=== PATIENT | male | born 1980 | race Caucasian/White ===

== ENCOUNTER 2023-03-25 10:01 | Emergency (ER) | payer BC, SELFPAY ==
[2023-03-25 10:21] VITALS: BP 131/79; PULSE 81; RESP 18; TEMP 36.7; O2SAT 99
--- NOTE | 2023-03-25 10:40 | ED.EYEPROB ---
HPI - Eye Problem General Chief complaint: Eye Problems Stated complaint: EYE REDNESS Time Seen by Provider: 03/25/23 10:40 Source: patient Mode of arrival: ambulatory Limitations: no limitations History of Present Illness HPI Narrative: 42-year-old male presents with complaint of right eye redness, swelling and drainage for 1 day. patient reports that his also has bacterial conjunctivitis. Denies vision changes. Patient does wear contacts. All systems reviewed and negative except as noted above. Related Data Home Medications Medication Instructions Recorded Confirmed multivitamin 1 tablet PO DAILY 07/15/19 03/25/23 Allergies Allergy/AdvReac Type Severity Reaction Status Date / Time No Known Allergies Allergy Verified 03/25/23 10:25 Review of Systems Review of Systems: CONSTITUTIONAL: Denies fever, chills, or sweats. EYES: Denies visual changes reports right eye redness, irritation, discharge. ENT: Denies rhinorrhea, congestion, sore throat, or otalgia. CARDIOVASCULAR: Denies chest pain, palpitations, or edema. RESPIRATORY: Denies cough or dyspnea. GASTROINTESTINAL: Denies abdominal pain, nausea, vomiting, or diarrhea. GENITOURINARY: Denies dysuria or hematuria. SKIN: Denies rash or itching. MUSCULOSKELETAL: Denies back pain, joint pain, or myalgia. NEUROLOGIC: Denies headache, numbness, or weakness. PSYCHIATRIC: Denies anxiety or depression. All other systems reviewed are negative, except as documented in HPI. [facility] Past Medical History Medical History Hyperlipidemia LDL goal <100 Tonsillectomy planned Type 1 diabetes mellitus with hyperglycemia Family History Family History Father Hypertension Family history of cardiovascular disease Patient's father is in good health Family history of diabetes mellitus in first degree relative Mother Patient's mother is in good health Sibling Patient's sister is in good health Patient's brother is in good health Grandparent Family history of Alzheimer's disease Other Diabetes mellitus Social History Social History Smoking status: Never smoker Second hand tobacco smoke exposure: No Smoking end date: 03/26/02 Alcohol intake: current Living arrangements: with family Additional living arrangements comments: lives with his and 2 kids. 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 There is no relevant family history pertinent to the presenting complaint. Exam Narrative: GENERAL: This is a well-nourished, well-developed patient, in no apparent distress. HEAD: normocephalic, atraumatic. EYES: PERRL. Right sclera and conjunctiva erythematous. Surrounding soft tissue swelling to right eye. Purulence drainage noted. Left eye normal. Vision is grossly intact. EARS: External ears normal NOSE: External nose normal NECK: Neck supple, non-tender without lymphadenopathy, masses or thyromegaly. CARDIOVASCULAR: Regular rate and rhythm without murmurs, gallops, or rubs. RESPIRATORY: Clear to auscultation. Breath sounds equal bilaterally. No wheezes, rales, or rhonchi. SKIN: warm, Dry, intact with no suspicious lesions or rash, good texture and turgor. NEURO: awake, alert, and oriented to person, place and time. There were no obvious focal neurologic abnormalities. EXTREMITIES: No joint tenderness, effusion, or edema noted. Course Course Level of Care: Express Care Visit Vital Signs Vital signs: Vital Signs Temperature 36.7 C 03/25/23 10:21 Pulse Rate 81 03/25/23 10:21 Respiratory Rate 18 03/25/23 10:21 Blood Pressure 131/79 03/25/23 10:21 Pulse Oximetry 99 03/25/23 10:21 Oxygen Delivery
== END 2023-03-25 10:48 | disposition home or self-care (01) ==
PROVIDERS: Emergency Provider Nurse Practitioner Family; PCP Family Medicine
DX: H10.31 Unspecified acute conjunctivitis, right eye (principal); E78.5 Hyperlipidemia, unspecified; E10.9 Type 1 diabetes mellitus without complications
CPT/HCPCS: 99213; G0463